=== PATIENT | male | born 1995 | race Caucasian/White ===

== ENCOUNTER 2023-10-31 08:54 | Emergency (ER) | payer OTHER ==
[2023-10-31 10:43] LABS: BASOPHILS # (AUTO) 0.1 10^3/uL (0.0-0.1); BASOPHILS % (AUTO) 0.9 %; EOSINOPHILS # (AUTO) 0.1 10^3/uL (0.0-0.7); EOSINOPHILS % (AUTO) 2.2 %; HCT - HEMATOCRIT 43.7 % (42.0-52.0); HGB - HEMOGLOBIN 14.1 g/dL (14.0-18.0); LYMPHOCYTES # (AUTO) 2.5 10^3/uL (1.5-3.5); LYMPHOCYTES % (AUTO) 42.9 %; MEAN CORPUSCULAR HEMOGLOBIN 31.1 pg (27.0-31.0); MEAN CORPUSCULAR HGB CONC 32.3 g/dL (32.0-36.0); MEAN CORPUSCULAR VOLUME 96.5 fL (80.0-94.0); MEAN PLATELET VOLUME 9.5 fL (7.4-11.4); MONOCYTES # (AUTO) 0.5 10^3/uL (0.0-1.0); MONOCYTES % (AUTO) 8.8 %; NEUTROPHILS # (AUTO) 2.6 10^3/uL (1.5-6.6); NEUTROPHILS % (AUTO) 44.9 %; PLT - PLATELET COUNT 312 10^3/uL (130-450); RED BLOOD COUNT 4.53 10^6/uL (4.70-6.10); RED CELL DISTRIBUTION WIDTH 13.7 % (12.0-15.0); WHITE BLOOD COUNT 5.9 x10^3/uL (4.8-10.8)
[2023-10-31 10:56] LABS: ALBUMIN 4.6 g/dL (3.2-5.5); ALBUMIN/GLOBULIN RATIO 1.9 (1.0-2.2); CALCIUM 9.7 mg/dL (8.5-10.3); CREATININE 0.8 mg/dL (0.6-1.3); MAGNESIUM 1.8 mg/dL (1.7-2.3); POTASSIUM 3.8 mmol/L (3.5-4.5)
[2023-10-31 11:11] LABS: THYROID STIMULATING HORMONE 4.59 uIU/mL (0.34-5.60)
--- NOTE | 2023-10-31 11:56 | ED Physician Documentation ---
History of Present Illness - Stated complaint Stated Complaint: GEN WEAKNESS,SWEATS,NO SLEEP - Chief complaint Chief Complaint: General - History obtained from History obtained from: Patient - History of Present Illness Timing: How many weeks ago (he states several weeks of feeling tired, sweats at night intermittently, fatigue. Did not have URI symptoms. 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 States prior history of being told he snores loudly and sometimes pauses breathing. No meds.) Review of Systems Constitutional: reports: Fatigue, Sweats. denies: Fever (but feeling night sweats couple of times or more per week the past several weeks. No weight loss nor gain. No URI symptoms preceding nor current.), Myalgias, Weight Loss Nose: reports: Congestion (mild due to allergies, per pt, not recently increased.). denies: Rhinorrhea / runny nose Throat: denies: Sore throat Respiratory: denies: Cough GI: denies: Abdominal Pain, Nausea, Vomiting, Diarrhea, Bloody / black stool : denies: Dysuria, Frequency, Discharge Skin: denies: Rash Neurologic: reports: Generalized weakness. denies: Headache, Head injury Psychiatric: reports: Other (poor sleep, particularly trying to sleep days after night shifts.). denies: Depressed, Suicidal PD PAST MEDICAL HISTORY - Past Medical History Past Medical History: No Respiratory: None Neuro: None Endocrine/Autoimmune: None - Past Surgical History Past Surgical History: No - Allergies Allergies/Adverse Reactions: Allergies Allergy/AdvReac Type Severity Reaction Status Date / Time Penicillins Allergy Anaphylaxis Verified 10/31/23 09:21 - Social History Does the pt smoke?: No Smoking Status: Never smoker Does the pt drink ETOH?: Yes ETOH Use: Other (occasional alochol. Denies using it to get to sleep. ) Does the pt have substance abuse?: No - Immunizations Immunizations are current?: Yes - POLST Patient has POLST: No PD ED PE NORMAL - Vitals Vital signs reviewed: Yes - General General: Alert and oriented X 3, No acute distress, Well developed/nourished - Neck Neck: Supple, no meningeal sign, No adenopathy, Thyroid normal - Cardiac Cardiac: RRR, No murmur - Respiratory Respiratory: Clear bilaterally - Abdomen Abdomen: Soft, Non tender - Derm Derm: Normal color, Warm and dry - Neuro Neuro: Alert and oriented X 3, No motor deficit, Normal speech Results - Vitals Vitals: Vital Signs - 24 hr 10/31/23 10/31/23 09:17 12:16 Temperature 36.5 C Heart Rate 71 65 Respiratory 14 20 Rate Blood Pressure 120/75 138/81 H O2 Saturation 99 98 Oxygen O2 Source Room air - Labs Labs: Laboratory Tests 10/31/23 10/31/23 10:38 10:38 WBC 5.9 RBC 4.53 L Hgb 14.1 Hct 43.7 MCV 96.5 H MCH 31.1 H MCHC 32.3 RDW 13.7 Plt Count 312 MPV 9.5 Neut # (Auto) 2.6 Lymph # (Auto) 2.5 Orange # (Auto) 0.5 Eos # (Auto) 0.1 Baso # (Auto) 0.1 Absolute Nucleated RBC 0.00 Nucleated RBC % 0.0 Sodium 138 Potassium 3.8 Chloride 104 Carbon Dioxide 25 Anion Gap 9.0 BUN 20 Creatinine 0.8 Estimated GFR (MDRD) 116 Glucose 104 Calcium 9.7 Magnesium 1.8 Total Bilirubin 1.0 AST 20 ALT 15 Alkaline Phosphatase 50 Total Protein 7.0 Albumin 4.6 Globulin 2.4 Albumin/Globulin Ratio 1.9 Lipase 22 TSH 4.59 PD Medical Decision Making - ED course Complexity details: considered differential (due to symptoosm of weats intermittently recent, with fatigue, poor sleep, I felt checking for WBC, glucose, lytes, Thyroid screen in particular. ), d/w patient Reviewed Lab Results: Basic labs are good here including those referenced above. He may have some recent viral illness with residual symptoms. He comments on poor sleep and prior partner commenting on snoring/apneas. This sleep disorder could be leading to current symptoms if not sound nor restorative sleep. However I can't initiate sleep study through the ER. His primary care would need to do that. or refer to sleep specialist. Departure - Departure Disposition: 01 Home, Self Care Clinical Impression: Feeling unwell, History of snoring, Non-restorative sleep Condition: Stable Record reviewed to determine appropriate education?: Yes Follow-Up: WILEY Lofton [Provider Group] Comments: Your basic blood tests which included a blood count so white count and blood count were normal not signifying any notable infection or anemia. Your chemistry panel was also normal with regard to electrolytes, blood sugar, kidney function liver function. No signs of obvious abnormality. Your thyroid screen was normal as well. At this point there is certainly can be other illness related to not feeling well for at least the basic blood tests look good. Follow-up with the primary care clinic. Regarding difficulty with sleep, it would be okay to use diphenhydramine/Benadr yl (Tylenol PM is 1 version) or melatonin to try to help with sleep induction. These can last about 6 hours or so so be sure you are able to have a full sleep so you do not wake up groggy. Regarding snoring and potential sleep apnea or hypoxia, you would need to follow-up with your primary care in order to get testing for that. This can be done outpatient now where you just wear a monitor for breathing and an oximeter and it tells you if you pause breathing or desaturate as a first screening tool. If you are having difficulties with sleep apnea or hypoxia, it can lead to some of the symptoms you are having so worth screening for. I am not able to initiate that through the ER. Off work today to rest. Forms: PCP List, Activity restrictions Discharge Date/Time: 10/31/23 12:17
[2023-10-31 12:21] VITALS: BP 138/81; O2SAT 98
== END 2023-10-31 12:17 | disposition home or self-care (01) ==
LOC: ED 08:54
DX: G47.8 Other sleep disorders (principal); R06.83 Snoring
CPT/HCPCS: 36415; 80053; 82306; 83690; 83735; 84443; 85025; 99283

== ENCOUNTER 2023-11-06 23:03 | Outpatient (CLI) | payer OTHER | END 2023-11-06 23:04 | disposition critical access hospital (66) | LOC: EMS 23:03 | DX: M54.2 Cervicalgia (principal); S90.32XA Contusion of left foot, initial encounter; S20.212A Contusion of left front wall of thorax, initial encounter; R47.81 Slurred speech; V58.5XXA Driver of pick-up truck or van injured in noncollision transport accident in traffic accident, initial encounter; Y92.413 State road as the place of occurrence of the external cause; F10.90 Alcohol use, unspecified, uncomplicated | CPT/HCPCS: A0425; A0429 ==

== ENCOUNTER 2023-11-06 23:11 | Emergency (ER) | payer OTHER ==
[2023-11-06] MEDS ORDERED: SODIUM CHLORIDE 0.9% 1,000 ML IV STA (23:21)
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
[2023-11-06 23:39] LABS: BASOPHILS # (AUTO) 0.1 10^3/uL (0.0-0.1); BASOPHILS % (AUTO) 0.9 %; EOSINOPHILS # (AUTO) 0.1 10^3/uL (0.0-0.7); EOSINOPHILS % (AUTO) 0.9 %; LYMPHOCYTES # (AUTO) 2.7 10^3/uL (1.5-3.5); LYMPHOCYTES % (AUTO) 36.4 %; MEAN CORPUSCULAR HEMOGLOBIN 30.5 pg (27.0-31.0); MEAN CORPUSCULAR HGB CONC 31.9 g/dL (32.0-36.0); MEAN CORPUSCULAR VOLUME 95.7 fL (80.0-94.0); MEAN PLATELET VOLUME 9.7 fL (7.4-11.4); MONOCYTES # (AUTO) 0.7 10^3/uL (0.0-1.0); MONOCYTES % (AUTO) 9.7 %; NEUTROPHILS # (AUTO) 3.8 10^3/uL (1.5-6.6); NEUTROPHILS % (AUTO) 51.4 %; PLT - PLATELET COUNT 336 10^3/uL (130-450); RED BLOOD COUNT 4.91 10^6/uL (4.70-6.10); RED CELL DISTRIBUTION WIDTH 13.5 % (12.0-15.0); WHITE BLOOD COUNT 7.4 x10^3/uL (4.8-10.8)
[2023-11-06 23:53] LABS: PARTIAL THROMBOPLASTIN TIME 24.5 secs (24.9-33.3)
[2023-11-06 23:57] LABS: PT - PROTHROMBIN TIME 11.2 secs (9.9-12.6)
[2023-11-06 23:59] LABS: ALBUMIN/GLOBULIN RATIO 1.7 (1.0-2.2); BILIRUBIN,TOTAL 0.4 mg/dL (0.2-1.0); CALCIUM 9.5 mg/dL (8.5-10.3); ETOH - ETHANOL 286.5 mg/dL; POTASSIUM 3.9 mmol/L (3.5-4.5); TOTAL PROTEIN 7.9 g/dL (6.4-8.9)
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
[2023-11-07] MEDS ORDERED: iohexoL-300 100 ML VIAL IVP ONE (01:05)
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
[2023-11-07] MEDS ORDERED: MORPHINE 2 MG/ML CARPUJECT IVP STA (02:40)
[2023-11-07 03:14] LABS: BILIRUBIN,URINE NEGATIVE (NEGATIVE); GLUCOSE, URINE (UA) NEGATIVE (NEGATIVE); KETONES,URINE (UA) NEGATIVE (NEGATIVE); LEUKOCYTE ESTERASE, URINE NEGATIVE (NEGATIVE); NITRITE,URINE NEGATIVE (NEGATIVE); OCCULT BLOOD,URINE LARGE (NEGATIVE); PROTEIN,URINE NEGATIVE (NEGATIVE); UROBILINOGEN,URINE 0.2 (NORMAL) E.U./dL (NORMAL)
[2023-11-07 03:33] LABS: AMPHETAMINE SCREEN,URINE NEGATIVE (NEGATIVE); BACTERIA,URINE Rare /HPF (None Seen); BARBITURATE SCREEN,UR NEGATIVE (NEGATIVE); BENZODIAZEPINES SCREEN, URINE NEGATIVE (NEGATIVE); BUPRENORPHINE SCREEN, URINE NEGATIVE (NEGATIVE); CLARITY,URINE CLEAR (CLEAR); COCAINE SCREEN URINE NEGATIVE (NEGATIVE); METHADONE SCREEN, URINE NEGATIVE (NEGATIVE); METHAMPHETAMINES SCREEN, URINE NEGATIVE (NEGATIVE); OPIATE SCREEN, URINE NEGATIVE (NEGATIVE); OXYCODONE SCREEN, URINE NEGATIVE (NEGATIVE); RBC,URINE TNTC /HPF (0-5); SQUAMOUS EPITHELIAL CELL,UR RARE Squamous (<= Few); THC CANNABINOID SCREEN, URINE NEGATIVE (NEGATIVE); TRICYCLIC ANTIDEPRESSANT,URINE NEGATIVE (NEGATIVE); WBC,URINE 0-3 /HPF (0-3)
[2023-11-07 05:15] VITALS: BP 96/64; O2SAT 95
== END 2023-11-07 05:42 | disposition short-term general hospital (02) ==
LOC: EDUNIT# → ED 23:11
DX: S12.200A Unspecified displaced fracture of third cervical vertebra, initial encounter for closed fracture (principal); S27.329A Contusion of lung, unspecified, initial encounter; V49.9XXA Car occupant (driver) (passenger) injured in unspecified traffic accident, initial encounter
CPT/HCPCS: 36415; 70450; 71045; 71260; 72125; 72170; 74177; 80053; 80306; 80320; 81001; 83690; 85025; 85610; 85730; 86850; 86900; 86901; 96374; 99285; Q9967; 81003; 87086

== ENCOUNTER 2023-11-08 10:33 | Emergency (ER) | payer OTHER ==
[2023-11-08] MEDS ORDERED: CHERRY SYRUP 10 ML UDC PO ONE (11:41)
[2023-11-08] MEDS ORDERED: DEXAMETHASONE 10 MG/ML VIAL PO STA (11:41)
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
[2023-11-08 17:52] VITALS: BP 140/73; O2SAT 96
== END 2023-11-08 17:50 | disposition home or self-care (01) ==
LOC: ED 10:33
DX: M54.12 Radiculopathy, cervical region (principal)
CPT/HCPCS: 99283; 99284

== ENCOUNTER 2024-03-10 12:35 | Emergency (ER) | payer OTHER ==
[2024-03-10 13:32] LABS: BASOPHILS # (AUTO) 0.1 10^3/uL (0.0-0.1); EOSINOPHILS # (AUTO) 0.1 10^3/uL (0.0-0.7); EOSINOPHILS % (AUTO) 2.4 %; HCT - HEMATOCRIT 45.2 % (42.0-52.0); HGB - HEMOGLOBIN 14.7 g/dL (14.0-18.0); LYMPHOCYTES % (AUTO) 40.9 %; MEAN CORPUSCULAR HEMOGLOBIN 29.9 pg (27.0-31.0); MEAN CORPUSCULAR HGB CONC 32.5 g/dL (32.0-36.0); MEAN CORPUSCULAR VOLUME 91.9 fL (80.0-94.0); MEAN PLATELET VOLUME 9.8 fL (7.4-11.4); MONOCYTES # (AUTO) 0.5 10^3/uL (0.0-1.0); MONOCYTES % (AUTO) 9.2 %; NEUTROPHILS # (AUTO) 2.3 10^3/uL (1.5-6.6); NEUTROPHILS % (AUTO) 46.3 %; PLT - PLATELET COUNT 314 10^3/uL (130-450); RED BLOOD COUNT 4.92 10^6/uL (4.70-6.10); RED CELL DISTRIBUTION WIDTH 12.6 % (12.0-15.0)
--- NOTE | 2024-03-10 13:41 | ED Physician Documentation ---
PD HPI ABD PAIN - Stated complaint Stated Complaint: diarrhea - Chief complaint Chief Complaint: Abd Pain - Additional information Additional information: 28-year-old male with no pertinent past medical history presents emergency department for persistent diarrhea for 4 days as well as abdominal pain. Patient reports that his abdominal pain and diarrhea is actually significantly improved he is only had 1 episode of diarrhea today. He says he is here because of " chain of command told me to come to the emergency department" patient currently denies any abdominal pain or discomfort at this point in time. PD PAST MEDICAL HISTORY - Past Medical History Respiratory: None Neuro: None Endocrine/Autoimmune: None GI: None : None HEENT: None Psych: None Musculoskeletal: None Derm: None - Past Surgical History Past Surgical History: No - Present Medications Home Medications: Ambulatory Orders Medication Instructions Recorded Confirmed No Known Home Medications 03/10/24 03/10/24 - Allergies Allergies/Adverse Reactions: Allergies Allergy/AdvReac Type Severity Reaction Status Date / Time Penicillins Allergy Anaphylaxis Verified 03/10/24 12:41 - Social History Does the pt smoke?: No Smoking Status: Never smoker Does the pt drink ETOH?: Yes Does the pt have substance abuse?: No - Immunizations Immunizations are current?: Yes - POLST Patient has POLST: No PD ED PE NORMAL - Vitals Vital signs reviewed: Yes - General General: Alert and oriented X 3, No acute distress, Well developed/nourished - HEENT HEENT: Atraumatic - Cardiac Cardiac: RRR, No gallop - Respiratory Respiratory: No respiratory distress, Clear bilaterally - Abdomen Abdomen: Normal bowel sounds, Soft, Non tender, Non distended, No organomegaly - Back Back: No CVA TTP - Derm Derm: Normal color, Warm and dry, No rash Results - Vitals Vitals: Vital Signs - 24 hr 03/10/24 03/10/24 12:38 14:09 Temperature 36.5 C Heart Rate 73 67 Respiratory 16 16 Rate Blood Pressure 128/72 109/73 O2 Saturation 99 98 Oxygen O2 Source Room air - Labs Labs: Laboratory Tests 03/10/24 03/10/24 13:27 13:27 WBC 5.0 RBC 4.92 Hgb 14.7 Hct 45.2 MCV 91.9 MCH 29.9 MCHC 32.5 RDW 12.6 Plt Count 314 MPV 9.8 Neut # (Auto) 2.3 Lymph # (Auto) 2.0 [place] # (Auto) 0.5 Eos # (Auto) 0.1 Baso # (Auto) 0.1 Absolute Nucleated RBC 0.00 Nucleated RBC % 0.0 Sodium 137 Potassium 4.1 Chloride 104 Carbon Dioxide 29 Anion Gap 4.0 L BUN 21 H Creatinine 0.9 Estimated GFR (MDRD) 100 Glucose 106 H Calcium 10.3 Total Bilirubin 0.9 AST 16 ALT 16 Alkaline Phosphatase 50 Total Protein 7.4 Albumin 4.7 Globulin 2.7 Albumin/Globulin Ratio 1.7 Lipase 17 PD Medical Decision Making - ED course ED course: This patient presents with non bloody diarrhea consistent with likely viral enteritis. Doubt invasive bacteria causing diarrhea such as C diff (no recent antibiotics), shiga toxin (non bloody). No recent travel. Patient is not immunocompromised. Diarrhea is non bloody so less likely inflammatory bowel disease. Given history, I have low suspicion for giardia or other parasites. Considered, but think unlikely, partial SBO, appendicitis, diverticulitis, other intraabdominal infection. Labs were complete upon ER visit and overall they are unremarkable. Given that patient symptoms have overall improved and he has minimal to no abdominal pain and discomfort I do not believe there is any further workup indicated at this point in time. Patient was given a work note to be excused from work from today per his request he was given some Zofran here in the emergency department to help with any lingering nausea. Told to follow-up with PCP as needed all questions answered safe for discharge return precautions given Departure - Departure Disposition: 01 Home, Self Care Clinical Impression: Diarrhea Qualifiers: Diarrhea type: unspecified type Qualified Code(s): R19.7 - Diarrhea, unspecified Condition: Good Instructions: ED Diarrhea Viral Comments: You for trusting us with your care. We have completed labs and I am not seeing any acute abnormalities or findings or evidence of this being due to some sort of bacterial infection. Most likely have a viral infection that is causing this diarrhea. I am reassured that your diarrhea and your abdominal pain has been getting better each day make sure going home that you are drinking plenty of fluids and staying well rested. Please come back to the emergency department if you are starting to experience new increased worsening abdominal pain, new onset worsening diarrhea, inability to keep fluids down or any other concerning symptoms. Wishing you a speedy recovery. Forms: PCP List Discharge Date/Time: 03/10/24 14:10
[2024-03-10 13:48] LABS: ALBUMIN 4.7 g/dL (3.2-5.5); ALBUMIN/GLOBULIN RATIO 1.7 (1.0-2.2); BILIRUBIN,TOTAL 0.9 mg/dL (0.2-1.0); CALCIUM 10.3 mg/dL (8.5-10.3); CREATININE 0.9 mg/dL (0.6-1.3); POTASSIUM 4.1 mmol/L (3.5-4.5); TOTAL PROTEIN 7.4 g/dL (6.4-8.9)
[2024-03-10] MEDS: ONDANSETRON ODT 4 MG TABLET TL STA (14:05)
[2024-03-10 14:12] VITALS: BP 109/73; O2SAT 98
== END 2024-03-10 14:10 | disposition home or self-care (01) ==
LOC: ED 12:35
DX: R19.7 Diarrhea, unspecified (principal)
CPT/HCPCS: 36415; 80053; 83690; 85025; 99283; Q0162

== ENCOUNTER 2024-04-09 06:53 | Emergency (ER) | payer OTHER ==
--- NOTE | 2024-04-09 07:20 | ED Physician Documentation ---
PD HPI ABD PAIN - Stated complaint Stated Complaint: NAUSEA/STOMACH ACHE - Chief complaint Chief Complaint: Abd Pain - History obtained from History obtained from: Patient - History of Present Illness Timing - onset: Yesterday Timing - details: Abrupt onset, Still present (tapered amount of vmiting but still nausea with small PO intake. General weakness. Concrned about persisting illness and weakness, not feeling able to work.) PD PAST MEDICAL HISTORY - Past Medical History Respiratory: None Neuro: None Endocrine/Autoimmune: None GI: None : None HEENT: None Psych: None Musculoskeletal: None Derm: None - Past Surgical History Past Surgical History: No - Present Medications Home Medications: Ambulatory Orders Medication Instructions Recorded Confirmed Diphenoxylate/Atropine [Lomotil] 1 each PO QID PRN #8 tablet 04/09/24 Ondansetron Odt [Zofran] 4 mg TL Q6H PRN #10 tablet 04/09/24 - Allergies Allergies/Adverse Reactions: Allergies Allergy/AdvReac Type Severity Reaction Status Date / Time Penicillins Allergy Anaphylaxis Verified 03/10/24 12:41 - Social History Does the pt smoke?: No Smoking Status: Never smoker Does the pt drink ETOH?: Yes Does the pt have substance abuse?: No - Immunizations Immunizations are current?: Yes - POLST Patient has POLST: No PD ED PE NORMAL - Vitals Vital signs reviewed: Yes - General General: Alert and oriented X 3, No acute distress, Well developed/nourished - HEENT HEENT: Pharynx benign - Neck Neck: Supple, no meningeal sign, No adenopathy - Cardiac Cardiac: RRR, No murmur - Respiratory Respiratory: No respiratory distress, Clear bilaterally - Abdomen Abdomen: Normal bowel sounds, Soft, Non distended, Other (mild tender epigastic without guarding nor percussion tenderness. ) Results - Vitals Vitals: Oxygen O2 Source Room air PD Medical Decision Making - ED course Complexity details: considered differential (sounds likely food related or viral given abruptness and seeming to be tapering already. Benign abd exam is not concerning for appy, GB, without peritoneal signs. Considered but did not feel needed labs nor imaging. Symptoms treatment at this point. Return precautions discussed. ), d/w patient Departure - Departure Disposition: 01 Home, Self Care Clinical Impression: Nausea, Abdominal discomfort, epigastric Condition: Stable Record reviewed to determine appropriate education?: Yes Instructions: ED Nausea Vomiting Follow-Up: FRANSISCO JADE, [Primary Care Provider] - Prescriptions: Diphenoxylate/Atropine [Lomotil] 1 each PO QID PRN #8 tablet PRN Reason: Diarrhea Ondansetron Odt [Zofran] 4 mg TL Q6H PRN #10 tablet PRN Reason: Nausea / Vomiting Comments: I would presume this is likely a mild viral "stomach flu". Alternatives are irritation of the stomach from something you ate or just to increase stomach acids leading to irritation. I think treating with some antinausea medicine and have bland food and frequent fluids and just resting more today would likely allow for continued improvement for all of these processes. You likely would have developed more significant diarrhea by now but just in case, I did prescribe some antidiarrhea medicine to take just if needed. The ondansetron/Zofran which is a antinausea medicine can be used if your stomach feels upset or nauseous and you do not have to wait until your actually vomiting. It has no sedating side effects for most people so using up to take. Rest today and small frequent fluids and small amounts of bland food initially. Progress as tolerated. I would anticipate improvement over the next day or 2. I sent your prescription to [facility] in [place]. Forms: PCP List, Activity restrictions Discharge Date/Time: 04/09/24 08:00
[2024-04-09 07:25] VITALS: BP 122/60; O2SAT 98
[2024-04-09] MEDS: ONDANSETRON ODT 4 MG TABLET TL STA (07:47)
[2024-04-09] MEDS: MAG HYDROX/AL HYDROX/SIMETH 30 ML UDC PO STA (07:47)
== END 2024-04-09 08:00 | disposition home or self-care (01) ==
LOC: ED 06:53
DX: R11.0 Nausea (principal); R10.13 Epigastric pain
CPT/HCPCS: 99283; A9270; Q0162

== ENCOUNTER 2024-05-11 09:55 | Emergency (ER) | payer OTHER ==
[2024-05-11 10:20] VITALS: BP 120/70; O2SAT 98
[2024-05-11 10:31] LABS: RAPID STREP SCREEN Negative (Negative)
--- NOTE | 2024-05-11 11:17 | ED Physician Documentation ---
PD HPI URI - Stated complaint Stated Complaint: SORE THROAT,ALARCON - Chief complaint Chief Complaint: Heent - History obtained from History obtained from: Patient - Additional information Additional information: 28-year-old male is here because "I have a cold". Requesting a note for work. Review of Systems Constitutional: denies: Fever, Chills Throat: reports: Sore throat PD PAST MEDICAL HISTORY - Past Medical History Past Medical History: Yes Cardiovascular: None Respiratory: None Neuro: None Endocrine/Autoimmune: None GI: Other : None HEENT: None Psych: None Musculoskeletal: None Derm: None - Past Surgical History Past Surgical History: No - Present Medications Home Medications: Ambulatory Orders Medication Instructions Recorded Confirmed Ondansetron Odt [Zofran] 4 mg TL Q6H PRN #10 tablet 04/19/24 05/11/24 - Allergies Allergies/Adverse Reactions: Allergies Allergy/AdvReac Type Severity Reaction Status Date / Time Penicillins Allergy Anaphylaxis Verified 05/11/24 10:06 - Social History Does the pt smoke?: No Smoking Status: Never smoker Does the pt drink ETOH?: Yes ETOH Use: Beer Does the pt have substance abuse?: No - Immunizations Immunizations are current?: Yes - POLST Patient has POLST: No PD ED PE NORMAL - Vitals Vital signs reviewed: Yes - General General: Alert and oriented X 3, No acute distress, Well developed/nourished - HEENT HEENT: Atraumatic, PERRL, EOMI, Moist mucous membranes, Other (Pharyngeal erythema without edema or exudates) - Derm Derm: Normal color, Warm and dry, No rash - Neuro Neuro: Alert and oriented X 3, 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 Requesting note for 2 days off of work. Strep test negative. Departure - Departure Disposition: 01 Home, Self Care Clinical Impression: Pharyngitis Condition: Stable Instructions: ED Pharyngitis Viral Comments: Your strep test was negative. Take Tylenol and ibuprofen for symptoms. Forms: PCP List
== END 2024-05-11 11:23 | disposition home or self-care (01) ==
LOC: ED 09:55
DX: J02.9 Acute pharyngitis, unspecified (principal); R51.9 Headache, unspecified
CPT/HCPCS: 87070; 87430; 99283

== ENCOUNTER 2024-05-13 08:00 | Outpatient (CLI) | payer OTHER | END 2024-05-13 23:59 | disposition home or self-care (01) | LOC: LAB 08:00 | PROVIDERS: ATTEND Physician Assistant | DX: J02.0 Streptococcal pharyngitis (principal) | CPT/HCPCS: 87070 ==